=== PATIENT | male | born 1985 | race American Indian/Alaskan Native ===

== ENCOUNTER 2020-08-04 16:30 | Emergency (ER) | payer OTHER ==
[2020-08-04 17:24] VITALS: BP 158/71
[2020-08-04] MEDS ORDERED: NEOMY 3.5 MG/BACIT 400 UNITS/POLY B 5000 UNITS/GM OINT PACKET TP STA (17:37)
--- NOTE | 2020-08-04 17:51 | Emergency Department Report ---
ED General Adult HPI - General Chief complaint: Laceration/Recheck/Suture Stated complaint: SUTURE REMOVAL Time Seen by Provider: 08/04/20 17:35 Source: patient Mode of arrival: Ambulatory Limitations: No Limitations - History of Present Illness Initial comments: 35-year-old -[place] male patient presents for suture removal today. Patient states he had his sutures were placed in [facility] 2 weeks ago. He denies being on antibiotics for infection prophylaxis and also denies any increased pain, swelling, redness, fever/chills/sweats, or swelling to his wounds. He states the wound to his right lateral thorax began to bleed 2 days ago. He denies any other complaints. No past medical history per patient. - Related Data Previous Rx's Medication Instructions Recorded Last Taken Type Clindamycin [Clindamycin CAP] 300 mg PO Q6H 10 Days #40 capsule 08/04/20 Unknown Rx Mupirocin [Bactroban 2% OINT] 1 applic TP TID 10 Days #1 tube 08/04/20 Unknown Rx Allergies Allergy/AdvReac Type Severity Reaction Status Date / Time No Known Allergies Allergy Unverified 08/04/20 17:21 ED Review of Systems ROS: Stated complaint: SUTURE REMOVAL Other details as noted in HPI Constitutional: denies: chills, diaphoresis, fever, malaise, weakness Musculoskeletal: denies: joint swelling, arthralgia Skin: denies: rash, lesions, change in color Neurological: denies: numbness, paresthesias Hematological/Lymphatic: denies: swollen glands ED Past Medical Hx - Past Medical History Previous Medical History?: No - Surgical History Past Surgical History?: No - Medications Home Medications: Home Medications Medication Instructions Recorded Confirmed Last Taken Type Clindamycin [Clindamycin CAP] 300 mg PO Q6H 10 Days #40 capsule 08/04/20 Unknown Rx Mupirocin [Bactroban 2% OINT] 1 applic TP TID 10 Days #1 tube 08/04/20 Unknown Rx ED Physical Exam - General Limitations: No Limitations General appearance: alert, in no apparent distress - Head Head exam: Present: atraumatic, normocephalic - Eye Eye exam: Present: normal appearance - Respiratory Respiratory exam: Absent: respiratory distress - Cardiovascular Cardiovascular Exam: Present: regular rate - Neurological Exam Neurological exam: Present: alert, oriented X3 - Psychiatric Psychiatric exam: Present: normal affect, normal mood - Skin Skin exam: Present: warm, dry, intact, normal color, other (Small healing laceration noted to right palm and left palm and little finger with simple sutures in place; no signs of infection noted; large healing laceration noted to right lateral chest wall with [address]; there is mild swelling & minimal purulent drainage noted; no cellulitis ). Absent: rash ED Course Vital Signs 08/04/20 17:22 Temperature 98 F Pulse Rate 90 Respiratory 16 Rate Blood Pressure 158/71 [Right] O2 Sat by Pulse 97 Oximetry - Procedure Description Procedures done: A total of 14 simple sutures removed. Patient tolerated procedure well without any immediate complications. There was mild wound dehiscence noted to the right lateral chest wall wound with mild purulent drainage noted with suture removal; no bleeding noted ED Medical Decision Making - Medical Decision Making 35-year-old -[place] male patient presents for suture removal today. Patient states he had his sutures were placed in [facility] 2 weeks ago. He denies being on antibiotics for infection prophylaxis and also denies any increased pain, swelling, redness, fever/chills/sweats, or swelling to his wounds. He states the wound to his right lateral thorax began to bleed 2 days ago. He denies any other complaints. No past medical history per patient. Sutures removed. Right lateral chest wound noted to be mildly infected without cellulitic changes noted. Wound cleaned and Neosporin placed on wound. Will discharge patient home with mupirocin and clindamycin. Discussed wound care and signs and symptoms that should prompt immediate return to the emergency department in detail with patient who verbalizes understanding. Patient is to follow-up with primary care provider in 3 days for wound recheck. He is well- appearing, his vitals are within normal limits, he is stable for discharge home Critical care attestation.: If time is entered above; I have spent that time in minutes in the direct care of this critically ill patient, excluding procedure time. ED Disposition Clinical Impression: Visit for suture removal, Infected wound Disposition: - TO HOME OR SELFCARE Is pt being admited?: No Condition: Stable Instructions: Wound Infection, Wound Closure Removal, Care After Prescriptions: Mupirocin [Bactroban 2% OINT] 1 applic TP TID 10 Days #1 tube Clindamycin [Clindamycin CAP] 300 mg PO Q6H 10 Days #40 capsule Referrals: [facility] [Provider Group] - 3-5 Days
== END 2020-08-04 18:00 | disposition home or self-care (01) ==
LOC: ED 16:30
DX: S21.101A Unspecified open wound of right front wall of thorax without penetration into thoracic cavity, initial encounter (principal); Z48.02 Encounter for removal of sutures; Z79.2 Long term (current) use of antibiotics; Z79.899 Other long term (current) drug therapy; X58.XXXA Exposure to other specified factors, initial encounter; Y93.89 Activity, other specified; Y92.89 Other specified places as the place of occurrence of the external cause; Y99.8 Other external cause status
CPT/HCPCS: 99282; A6250